=== PATIENT | female | born 1995 | race Native Hawaiian/Other Pacific Islander ===

== ENCOUNTER 2016-05-07 10:25 | Emergency (ER) | payer OTHER ==
[~2016-05-07] VITALS: Ht 177.8 cm; Wt 81.6 kg
[2016-05-07 12:09] VITALS: BP 120/70; TEMP 98
== END 2016-05-07 12:12 | disposition home or self-care (01) ==
LOC: ED 10:25
DX: H66.012 Acute suppurative otitis media with spontaneous rupture of ear drum, left ear (principal); H66.003 Acute suppurative otitis media without spontaneous rupture of ear drum, bilateral; H92.03 Otalgia, bilateral
CPT/HCPCS: 99281

== ENCOUNTER 2021-01-05 17:53 | Emergency (ER) | payer OTHER ==
[~2021-01-05] VITALS: Ht 175.3 cm; Wt 83.9 kg
[2021-01-05 18:05] VITALS: BP 126/71; TEMP 98.1
== END 2021-01-05 21:23 | disposition home or self-care (01) ==
LOC: ED 17:53
DX: Z53.21 Procedure and treatment not carried out due to patient leaving prior to being seen by health care provider (principal); R07.89 Other chest pain; U07.1 COVID-19
CPT/HCPCS: 99281

== ENCOUNTER 2021-01-06 12:34 | Outpatient (CLI) | payer OTHER ==
[~2021-01-06] VITALS: Ht 175.3 cm; Wt 85.7 kg
== END 2021-01-06 19:34 | disposition home or self-care (01) ==
LOC: INF 12:34
PROVIDERS: ATTEND Family Medicine
DX: Z23 Encounter for immunization (principal); U07.1 COVID-19
CPT/HCPCS: 96365; M0244